=== PATIENT | female | born 1970 | race Two or more races ===

== ENCOUNTER 2018-11-03 13:50 | Emergency (ER) | payer MEDICAID ==
[~2018-11-03] VITALS: Ht 157.5 cm; Wt 57.2 kg
[2018-11-03] MEDS ORDERED: SUMA100T PO (14:00)
[2018-11-03] MEDS ORDERED: IBUPROFEN 600 MG TABLET PO ONE (14:30)
[2018-11-03] MEDS ORDERED: BENZONATATE 100 MG CAPSULE ONE (14:30)
[2018-11-03] MEDS ORDERED: IBUPROFEN 600 MG TABLET ONE (14:30)
[2018-11-03] MEDS ORDERED: BENZONATATE 100 MG CAPSULE PO ONE (14:30)
[2018-11-03] MEDS ORDERED: HYDROCODONE/APAP 5-325MG TABLET PO ONE (14:30)
[2018-11-03] MEDS ORDERED: HYDROCODONE/APAP 5-325MG TABLET ONE (14:31)
--- NOTE | 2018-11-03 14:54 | NUR ---
Patient is resting comfortably in bed with eyes closed,NAD noted.
--- NOTE | 2018-11-03 15:33 | NUR ---
Patient discharged to home in stable conditon. Written and verbal after care instructions given. Patient verbalizes understanding of instructions.
[2018-11-03 15:35] VITALS: BP 103/60
== END 2018-11-03 15:36 | disposition home or self-care (01) ==
LOC: ER 13:50
DX: J20.9 Acute bronchitis, unspecified (principal); Z79.899 Other long term (current) drug therapy
CPT/HCPCS: 36415; 86403; 87070; 87400; A4663